=== PATIENT | male | born 1960 | race Caucasian/White ===

== ENCOUNTER 2017-03-03 19:08 | Emergency (ER) | payer OTHER ==
[2017-03-03 19:34] VITALS: BP 143/89
[2017-03-03] MEDS ORDERED: Sodium Chloride 0.9% 1,000 ML IV ONE (20:19)
--- NOTE | 2017-03-03 20:20 | EDM.PDOC ---
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 He states that he believes he has been breathing in these all exhaust while driving one of the trucks; he is concerned that exhaust fumes are somehow getting into the cab. He reports smelling fumes, burning eyes, lightheadedness, nausea and dry heaves, a headache, and tingling skin both today as well as a week ago, 02/24/2017, when driving the same truck. He denies chest pain. No prior similar symptoms. The patient's oxygen saturation is noted to be 100% on room air. The patient's PCP is Dr. Mccarthy, however, he reports that he will be switching to [facility] Ron. - Related Data Allergies Allergy/AdvReac Type Severity Reaction Status Date / Time No Known Allergies Allergy Verified 10/02/14 18:30 Home Meds: Home Meds Aspirin 1 tab PO DAILY 10/02/14 [History] Diltiazem HCl [Diltiazem 24Hr ER] 1 tab PO ASDIRECTED PRN 10/02/14 [History] Lisinopril/Hydrochlorothiazide [Lisinopril-Hctz 20-12.5 mg Tab] 1 tab PO DAILY 10/02/14 [History] Multivitamin [Multi-Vitamin Daily] 1 tab PO DAILY 10/02/14 [History] Omeprazole 1 tab PO DAILY 10/02/14 [History] Rosuvastatin [Crestor] 10 mg PO DAILY 03/03/17 [History] Past Medical History Cardiovascular History: Reports: Afib (paroxysmal), High Cholesterol, Hypertension Gastrointestinal History: Reports: GERD Genitourinary History: Reports: BPH Musculoskeletal History: Reports: Back Pain, Chronic - Past Surgical History HEENT Surgical History: Reports: Oral Surgery ([place] teeth extraction) Social & Family History - Tobacco Use Smoking Status *Q: Former Smoker Years of Tobacco use: 36 Packs/Tins Daily: 2 Packs/Tins Daily Comment: Quit 2012 - Caffeine Use Caffeine Use: Reports: Coffee, Energy Drinks, Soda, Tea - Alcohol Use Alcohol Use History: Yes Days Per Week of Alcohol Use: 0 Alcohol Use Frequency: Socially - Recreational Drug Use Recreational Drug Use: No - Living Situation & Occupation Living situation: Reports: , Alone 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) ED ROS GENERAL - Review of Systems Review Of Systems: See Below Constitutional: Reports: No Symptoms HEENT: Reports: No Symptoms Respiratory: Reports: No Symptoms Cardiovascular: Reports: No Symptoms Endocrine: Reports: No Symptoms GI/Abdominal: Reports: No Symptoms : Reports: No Symptoms Musculoskeletal: Reports: No Symptoms Skin: Reports: No Symptoms Neurological: Reports: No Symptoms Psychiatric: Reports: No Symptoms Hematologic/Lymphatic: Reports: No Symptoms Immunologic: Reports: No Symptoms ED EXAM, GENERAL - Physical Exam Exam: See Below Exam Limited By: No Limitations General Appearance: Alert, WD/WN, No Apparent Distress Eye Exam: Bilateral Eye: Normal Inspection Ears: Normal External Exam, Hearing Grossly Normal Nose: Normal Inspection, No Blood Throat/Mouth: Normal Inspection, Normal Lips, Normal Voice, No Airway Compromise Head: Atraumatic, Normocephalic Neck: Normal Inspection, Full Range of Motion Respiratory/Chest: No Respiratory Distress, Lungs Clear, Normal Breath Sounds, No Accessory Muscle Use Cardiovascular: Normal Peripheral Pulses, Regular Rate, Rhythm, No Gallop, No JVD, No Murmur, No Rub Peripheral Pulses: 4+: Radial (L), Radial (R) GI/Abdominal: Normal Bowel Sounds, Soft, Non-Tender, No Organomegaly, No Distention, No Abnormal Bruit, No Mass (Male) Exam: Deferred Rectal (Males) Exam: Deferred Back Exam: Normal Inspection, Full Range of Motion, NT Extremities: Normal Inspection, Normal Range of Motion, No Pedal Edema, Normal Capillary Refill Neurological: Alert, Oriented, Normal Cognition, No Motor/Sensory Deficits Psychiatric: Normal Affect, Anxious Skin Exam: Warm, Dry, Intact, Normal Color, No Rash Lymphatic: No Adenopathy Course - Vital Signs Last Recorded V/S: Last Vital Signs Temp 36.6 C 03/03/17 19:31 Pulse 86 03/03/17 19:31 Resp 20 03/03/17 19:31 BP 143/89 H 03/03/17 19:31 Pulse Ox 95 03/03/17 19:31 Orthostatic Blood Pressure [ 140/95 Standing] Orthostatic Blood Pressure [ 154/90 Sitting] Orthostatic Blood Pressure [ 157/78 Supine] - Orders/Labs/Meds Orders: Active Orders 24 hr Category Date Time Status EKG Documentation Completion [RC] STAT Care 03/03/17 19:53 Active Orthostatic Vital Signs [RC] STAT Care 03/03/17 19:53 Active Orthostatic Vital Signs [RC] STAT Care 03/03/17 20:18 Active Chest 2V [CR] Stat Exams 03/03/17 19:53 Taken Labs: Laboratory Tests 03/03/17 03/03/17 03/03/17 Range/Units 20:26 20:29 20:29 WBC 10.40 H (4.23-9.07) K/mm3 RBC 4.94 (4.63-6.08) M/mm3 Hgb 14.9 (13.7-17.5) gm/L Hct 42.0 (40.1-51.0) % MCV 85.0 (79.0-92.2) fl MCH 30.2 (25.7-32.2) pg MCHC 35.5 (32.2-35.5) g/dl RDW Std Deviation 41.5 (35.1-43.9) fL Plt Count 284 (163-337) K/mm3 MPV 9.7 (9.4-12.3) fl Neutrophils % (Manual) 67 H (40-60) % Band Neutrophils % 0 (0-10) % Lymphocytes % (Manual) 27 (20-40) % Atypical Lymphs % 0 % Monocytes % (Manual) 5 (2-10) % Eosinophils % (Manual) 1 (0.8-7.0) % Basophils % (Manual) 0 L (0.2-1.2) Platelet Estimate Adequate Plt Morphology Comment Normal RBC Morph Comment Normal PT 10.5 (8.0-13.0) SECONDS INR 0.97 APTT 26 (22-36) SECONDS D-Dimer, Quantitative 0.28 (0.19-0.59) mg/L Puncture Site Rt radial ABG pH 7.45 (7.35-7.45) ABG pCO2 35.2 (35.0-45.0) mmHg ABG pO2 62.0 L (80.0-100.0) mmHg ABG HCO3 24.0 (22.0-26.0) meq/L ABG O2 Saturation 92.9 L (96.0-97.0) % ABG Base Excess 0.9 (-2-2.0) A-a Gradient 28 mmHg O2 Delivery Device Room air FiO2 0.00 L (21.00-100.00) % Sodium (136-145) mEq/L Potassium (3.5-5.1) mEq/L Chloride (98-107) mEq/L Carbon Dioxide (21-32) mEq/L Anion Gap (5-15) BUN (7-18) mg/dL Creatinine (0.7-1.3) mg/dL Est Cr Clr Drug Dosing mL/min Estimated GFR (MDRD) (>60) mL/min BUN/Creatinine Ratio (14-18) Glucose (74-106) mg/dL Calcium (8.5-10.1) mg/dL Magnesium (1.8-2.4) mg/dl Total Bilirubin (0.2-1.0) mg/dL AST (15-37) U/L ALT (16-63) U/L Alkaline Phosphatase (46-116) U/L Troponin I (0.00-0.056) ng/mL NT-Pro-B Natriuret Pep (0-125) pg/mL Total Protein (6.4-8.2) g/dl Albumin (3.4-5.0) g/dl Globulin gm/dL Albumin/Globulin Ratio (1-2) TSH 3rd Generation (0.358-3.74) uIU/mL Urine Color (Yellow) Urine Appearance (Clear) Urine pH (5.0-8.0) Ur Specific [place] (1.005-1.030) Urine Protein (Negative) Urine Glucose (UA) (Negative) Urine Ketones (Negative) Urine Occult Blood (Negative) Urine Nitrite (Negative) Urine Bilirubin (Negative) Urine Urobilinogen (0.2-1.0) Ur Leukocyte Esterase (Negative) Urine RBC (0-5) /hpf Urine WBC (0-5) /hpf Ur Epithelial Cells (0-5) /hpf Urine Bacteria (FEW) /hpf Urine Mucus (FEW) /hpf 03/03/17 03/03/17 Range/Units 20:29 20:35 WBC (4.23-9.07) K/mm3 RBC (4.63-6.08) M/mm3 Hgb (13.7-17.5) gm/L Hct (40.1-51.0) % MCV (79.0-92.2) fl MCH (25.7-32.2) pg MCHC (32.2-35.5) g/dl RDW Std Deviation (35.1-43.9) fL Plt Count (163-337) K/mm3 MPV (9.4-12.3) fl Neutrophils % (Manual) (40-60) % Band Neutrophils % (0-10) % Lymphocytes % (Manual) (20-40) % Atypical Lymphs % % Monocytes % (Manual) (2-10) % Eosinophils % (Manual) (0.8-7.0) % Basophils % (Manual) (0.2-1.2) Platelet Estimate Plt Morphology Comment RBC Morph Comment PT (8.0-13.0) SECONDS INR APTT (22-36) SECONDS D-Dimer, Quantitative (0.19-0.59) mg/L Puncture Site ABG pH (7.35-7.45) ABG pCO2 (35.0-45.0) mmHg ABG pO2 (80.0-100.0) mmHg ABG HCO3 (22.0-26.0) meq/L ABG O2 Saturation (96.0-97.0) % ABG Base Excess (-2-2.0) A-a Gradient mmHg O2 Delivery Device FiO2 (21.00-100.00) % Sodium 136 (136-145) mEq/L Potassium 3.8 (3.5-5.1) mEq/L Chloride 101 (98-107) mEq/L Carbon Dioxide 25 (21-32) mEq/L Anion Gap 13.8 (5-15) BUN 19 H (7-18) mg/dL Creatinine 1.0 (0.7-1.3) mg/dL Est Cr Clr Drug Dosing 85.17 mL/min Estimated GFR (MDRD) > 60 (>60) mL/min BUN/Creatinine Ratio 19.0 H (14-18) Glucose 102 (74-106) mg/dL Calcium 9.6 (8.5-10.1) mg/dL Magnesium 1.9 (1.8-2.4) mg/dl Total Bilirubin 0.8 (0.2-1.0) mg/dL AST 20 (15-37) U/L ALT 42 (16-63) U/L Alkaline Phosphatase 23 L (46-116) U/L Troponin I < 0.017 (0.00-0.056) ng/mL NT-Pro-B Natriuret Pep 13 (0-125) pg/mL Total Protein 7.4 (6.4-8.2) g/dl Albumin 4.1 (3.4-5.0) g/dl Globulin 3.3 gm/dL Albumin/Globulin Ratio 1.2 (1-2) TSH 3rd Generation 2.373 (0.358-3.74) uIU/mL Urine Color Yellow (Yellow) Urine Appearance Slt cloudy H (Clear) Urine pH 6.0 (5.0-8.0) Ur Specific [place] 1.025 (1.005-1.030) Urine Protein Negative (Negative) Urine Glucose (UA) Negative (Negative) Urine Ketones Negative (Negative) Urine Occult Blood Negative (Negative) Urine Nitrite Negative (Negative) Urine Bilirubin Negative (Negative) Urine Urobilinogen 0.2 (0.2-1.0) Ur Leukocyte Esterase Negative (Negative) Urine RBC 0-5 (0-5) /hpf Urine WBC 0-5 (0-5) /hpf Ur Epithelial Cells 0-5 (0-5) /hpf Urine Bacteria Rare (FEW) /hpf Urine Mucus Not seen (FEW) /hpf Meds: Medications Discontinued Medications Generic Name Dose Route Start Last Admin Trade Name Freq PRN Reason Stop Dose Admin Sodium Chloride 1,000 mls @ 999 mls/hr 03/03/17 20:19 03/03/17 20:37 Normal Saline IV 03/03/17 21:19 999 mls/hr ONETIME ONE Administration - Re-Assessments/Exams Free Text/Narrative Re-Assessment/Exam: 03/03/17 20:19 The patient's orthostatic blood pressures meet criterion for orthostasis. I have ordered 1 L normal saline bolus, to be followed by a second check of the orthostatics. 03/03/17 21:29 Notified that the patient refused the ECG. Two-view chest radiograph appears to be grossly normal. Cardiac silhouette is within normal limits. No pulmonary vascular congestion. No pleural effusions. No focal infiltrate. No pneumothorax. Formal read per the Radiologist pending. 03/03/17 22:05 After 1 L normal saline, the patient is no longer orthostatic. 03/03/17 22:28 Test results discussed with the patient. The ABG demonstrate a carbon monoxide level of 1%, confirming that the patient is not suffering from carbon monoxide poisoning. His symptoms are most likely due to anxiety over the fear of breathing in fumes. Departure - Departure Time of Disposition: 22:29 Disposition: Home, Self-Care 01 Condition: Good Clinical Impression: Anxiety - Discharge Information Instructions: Panic Attacks Referrals: Randee Ron PA-C [Primary Care Provider] - Forms: ED Department Discharge Additional Instructions: You were seen in the emergency room for burning eyes, lightheadedness, nausea with dry heaves, tingling skin and a headache after possibly breathing in fumes in your truck. Workup in the ER included blood work, and arterial blood gas, a urinalysis, a chest x-ray and positional blood pressure checks. You refused the ECG. Your carbon monoxide level returned at 1%, well below poison level. Your symptoms are MOST LIKELY due to anxiety. Follow-up with your PCP as needed. If any other problems, please do not hesitate to return to the ER. - My Orders Last 24 Hours: My Active Orders 03/03/17 19:53 EKG Documentation Completion [RC] STAT Orthostatic Vital Signs [RC] STAT Chest 2V [CR] Stat 03/03/17 20:18 Orthostatic Vital Signs [RC] STAT - Assessment/Plan Last 24 Hours: My Active Orders 03/03/17 19:53 EKG Documentation Completion [RC] STAT Orthostatic Vital Signs [RC] STAT Chest 2V [CR] Stat 03/03/17 20:18 Orthostatic Vital Signs [RC] STAT
--- NOTE | 2017-03-04 07:17 | CR ---
Chest: Two views of the chest were obtained. Comparison: Previous chest x-ray of 10/02/14. Heart size and mediastinum are within normal limits. Lungs are clear. Bony structures are within normal limits. Impression: 1. Nothing acute is identified on two-view chest x-ray. Diagnostic code #1
== END 2017-03-03 22:35 | disposition home or self-care (01) ==
LOC: JD.ED 19:08
DX: F41.9 Anxiety disorder, unspecified (principal); I10 Essential (primary) hypertension; I48.91 Unspecified atrial fibrillation; E78.00 Pure hypercholesterolemia, unspecified; K21.9 Gastro-esophageal reflux disease without esophagitis; Z87.891 Personal history of nicotine dependence; Z79.82 Long term (current) use of aspirin; Z79.899 Other long term (current) drug therapy
CPT/HCPCS: 36415; 36600; 71020; 80053; 81001; 82803; 83735; 83880; 84443; 84484; 85025; 85379; 85610; 85730; 96360; 99284; J7040